=== PATIENT | male | born 1975 | race Two or more races ===

== ENCOUNTER 2018-05-20 10:03 | Emergency (ER) | payer OTHER ==
[~2018-05-20] VITALS: Ht 167.6 cm; Wt 72.6 kg
[2018-05-20 10:49] VITALS: BP 108/60
--- NOTE | 2018-05-20 11:43 | Diagnostic Imaging Report ---
Indication: pain. Left hand pain Findings: 3 views of the left hand were obtained. There is a comminuted injury involving the tuft of the fourth ray. Acuity of this injury is unknown although the fragmentation appears well marginated and corticated indicating this is probably an old process. Correlate clinically. There is an acute fracture at the tip of the distal phalange of the thumb. This appears acute. Correlate clinically. No radiopaque foreign body identified. No malalignment seen. IMPRESSION: Acute tuft fracture of the thumb Irregularity and fracture deformity of the fourth distal phalangeal tuft probably old.
[2018-05-20 14:51] VITALS: BP 110/74
--- NOTE | 2018-05-20 15:21 | Emergency Room Report ---
History of Present Illness General Chief Complaint: Laceration Source: Patient (Alexandra Ware) Source: Patient (Rock Hardwick MD) Present Illness HPI 42-year-old male presents ED complaining of left hand injury. States that he accidentally hit his thumb with the hammer today at work. Notes pain in bleeding from his left thumb. Tetanus is up-to-date. Pain is throbbing, 6 out of 10, nonradiating. Denies any other injuries. No other aggravating relieving factors. Denies any other associated symptoms (Rock Hardwick MD) Allergies: Coded Allergies: No Known Allergies (Unverified , 05/20/18) Patient History Past Surgical History: none Pertinent Family History: none Social History: Denies: smoking, alcohol use, drug use Immunizations: UTD Reviewed Nursing Documentation: PMH: Agreed; PSxH: Agreed (Rock Hardwick MD) Nursing Documentation-PMH Past Medical History: No Stated History (Alexandra Ware) Review of Systems All Other Systems: negative except mentioned in HPI (Rock Hardwick MD) Physical Exam Vital Signs Date Time Temp Pulse Resp B/P (MAP) Pulse Ox O2 Delivery O2 Flow Rate FiO2 05/20/18 10:23 97.8 76 16 108/60 98 Room Air 97.9 (Alexandra Ware) Sp02 EP Interpretation: reviewed, normal General Appearance: no apparent distress, alert, GCS 15, non-toxic Head: normocephalic Eyes: bilateral eye normal inspection, bilateral eye PERRL ENT: normal ENT inspection Neck: normal inspection Respiratory: normal inspection Cardiovascular #1: normal inspection Gastrointestinal: normal inspection Rectal: deferred Genitourinary: no CVA tenderness Musculoskeletal: other - avulsion of nail from matrix. no active bleeding Neurologic: alert, oriented x3, responsive, motor strength/tone normal, sensory intact, speech normal Psychiatric: judgement/insight normal, memory normal, mood/affect normal, no suicidal/homicidal ideation Skin: normal inspection Lymphatic: normal inspection (Rock Hardwick MD) Procedures Laceration/Wound Repair Laceration/Wound Repair : Consent: Verbal Wound Location: upper extremity - L thumb Wound's Depth, Shape: stellate - 1cm laceration to nailbed Wound Explored: clean Betadine Prep?: Yes Anesthesia: Lidocaine w/ Epi Wound Debrided: minimal Wound Repaired With: sutures Suture Size/Type: other - vicryl Layer Closure?: No Sterile Dressing Applied?: Yes Splint Applied?: No Sling Applied?: No Patient Tolerated: Well Complications: None (Rock Hardwick MD) Medical Decision Making PA Attestation Dr. sheridan is my supervising Physician whom patient management has been discussed with. (Alexandra Ware) Diagnostic Impression: Primary Impression: Open fracture of tuft of distal phalanx of finger Additional Impressions: Nailbed laceration, finger Qualified Codes: S61.319A - Laceration without foreign body of unspecified finger with damage to nail, initial encounter Nail avulsion, finger Qualified Codes: S61.309A - Unspecified open wound of unspecified finger with damage to nail, initial encounter ER Course Hospital Course 42-year-old M presents to ED with pain/bleeding from L thumb differential - fx, dislocation, laceration Clinical course Patient placed on stretcher. After initial history and physical I ordered pain meds, xray xray shows tuft tx of L thumb digital block applied. nail removed. nailbed repaired with absorbable suture. dressing/bacitracin applied. splint applied we will provide rx for abx, outpatient followup with hand Diagnosis - open fx of tuft of distal phalanx of finger, nailbed laceration, nail avulsion Stable and discharged to home. wound Care instructions given. Followup with hand as outpaient. Return to ED if any signs of infection develop (Rock Hardwick MD) Other X-Ray Diagnostic Results Other X-Ray Diagnostic Results : X-Ray ordered: L hand # of Views/Limited Vs Complete: 3 View Indication: Pain EP Interpretation: Yes Interpretation: no dislocation, other - tuft fx of thumb Impression: Other - fx Electronically Signed by: Electronically signed by Rokc Hardwick MD (Rock Hardwick MD) Last Vital Signs Date Time Temp Pulse Resp B/P (MAP) Pulse Ox O2 Delivery O2 Flow Rate FiO2 05/20/18 14:51 97.9 83 18 110/74 98 Room Air 97.9 (Alexandra Ware) Status: improved (Rock Hardwick MD) Disposition: HOME, SELF-CARE Condition: Stable Scripts Ibuprofen* (MOTRIN*) 600 Mg Tablet 600 MG ORAL THREE TIMES A DAY, #20 TAB 0 Refills Prov: Alexandra Ware 05/20/18 Hydrocodone Bit/Acetaminophen 5-325* (NORCO 5-325*) 1 Each Tablet 1 TAB ORAL Q6H PRN for For Pain, #15 TAB 0 Refills Prov: Alexandra Ware 05/20/18 Bacitracin/Polymyxin B Sulfate (BACITRACIN-POLYMYXIN OINTMENT) 28.35 Gm Oint...g. 1 APPLIC TP BID, #28.5 GM Prov: Alexandra Ware 05/20/18 Cephalexin* (KEFLEX*) 500 Mg Capsule 500 MG ORAL EVERY 12 HOURS for 7 Days, #14 CAP 0 Refills Prov: Alexandra Ware 05/20/18 Referrals: EVELIO JONES M.D. Patient Instructions: Crush Injury, Fingers or Toes, Nail Avulsion, Nail Bed Laceration Additional Instructions: Take medications as directed. Follow up with a Hand Specialist in 3-5 days, even if your symptoms have resolved. -Referral is given on next page. Return sooner to ED if new symptoms occur, or current symptoms become worse. Do not drink alcohol, drive, or operate heavy machinery while taking [place] as this may cause drowsiness. - Please note that this Emergency Department Report was dictated using [employer] cards and announcements technology software, occasionally this can lead to erroneous entry secondary to interpretation by the dictation equipment. Alexandra Ware May 20, 2018 15:21 Rock Hardwick MD May 21, 2018 08:17
[2018-05-20] MEDS ORDERED: NORCO 5-325 TA1 EACH ORAL (15:23)
[2018-05-20] MEDS ORDERED: CEPHALEXIN500 MG ORAL (15:23)
[2018-05-20] MEDS ORDERED: IBUPROFEN600 MG ORAL (15:23)
[2018-05-20] MEDS ORDERED: BACITRACIN-P28.35 GM TP (15:23)
[2018-05-20 15:25] VITALS: BP 110/74
== END 2018-05-20 15:25 | disposition home or self-care (01) ==
LOC: EMR 11:10
DX: S62.522B Displaced fracture of distal phalanx of left thumb, initial encounter for open fracture (principal); S61.112A Laceration without foreign body of left thumb with damage to nail, initial encounter; W22.8XXA Striking against or struck by other objects, initial encounter; Y92.9 Unspecified place or not applicable
CPT/HCPCS: 12001; 73130; 99284; Z7502